=== PATIENT | female | born 1995 | race American Indian/Alaskan Native ===

== ENCOUNTER 2019-04-27 00:53 | Emergency (ER) | payer SELFPAY ==
[2019-04-27] MEDS ORDERED: ACTIDOSE-AQUA PO ONE (01:24)
[2019-04-27] MEDS ORDERED: NACL 0.9% 1000 ML 1,000 ML IV ONE (01:25)
--- NOTE | 2019-04-27 01:30 | Emergency Department Report ---
ED Psych HPI - General Chief Complaint: Psych Stated Complaint: OVERDOSE Time Seen by Provider: 04/27/19 01:22 Source: patient, police Mode of arrival: Ambulatory - History of Present Illness Initial Comments: 23-year-old female, hx of HIV, bipolar, schizophrenia, presents ED following an attempted overdose. Patient was at home and got into an argument with friends. Patient wanted everyone to leave, but they wouldn't, so she locked herself in a room and reports taking 15 pills approx 1 hour ago. Patient states pills were her psychiatric medicine, however does not know the name. States it started with an "L". Patient reports other life stressors going on that made her want to end her life tonight. Patient states, "I just wanted to know what it would feel like if I wasn't here anymore." Complaint: suicidal ideation -: hour(s) (1) Associated Psychiatric Symptoms: suicidal ideation History of same: Yes Improves With: none Worsens With: none Context: significant life stressor Associated Symptoms: denies other symptoms Treatments Prior to Arrival: none If Self Harm: intentional overdose - Related Data Allergies Allergy/AdvReac Type Severity Reaction Status Date / Time No Known Allergies Allergy Unverified 04/27/19 01:46 ED Review of Systems ROS: Stated complaint: OVERDOSE Other details as noted in HPI Comment: All other systems reviewed and negative Gastrointestinal: denies: nausea, vomiting Psychiatric: depression, suicidal thoughts. denies: auditory hallucinations, visual hallucinations, homicidal thoughts ED Past Medical Hx - Past Medical History Previous Medical History?: Yes Hx Psychiatric Treatment: Yes (Bipolar/schizophrenia, ADHD, OCD, ADD, MAJOR DEPRESSIVE DISORDER) - Surgical History Past Surgical History?: No - Social History Smoking Status: Current Some Day Smoker Substance Use Type: Alcohol, Marijuana ED Physical Exam - General Limitations: No Limitations General appearance: alert, in no apparent distress - Head Head exam: Present: atraumatic, normocephalic - Eye Eye exam: Present: normal appearance, PERRL, EOMI - ENT ENT exam: Present: mucous membranes moist - Neck Neck exam: Present: normal inspection - Respiratory Respiratory exam: Present: normal lung sounds bilaterally. Absent: respiratory distress - Cardiovascular Cardiovascular Exam: Present: regular rate, normal rhythm - GI/Abdominal GI/Abdominal exam: Absent: distended - Extremities Exam Extremities exam: Present: normal inspection - Neurological Exam Neurological exam: Present: alert, oriented X3, CN II-XII intact. Absent: motor sensory deficit - Psychiatric Psychiatric exam: Present: normal affect, normal mood - Skin Skin exam: Present: warm, dry, intact, normal color ED Course Vital Signs 04/27/19 04/27/19 04/27/19 01:12 02:03 05:07 Temperature 98 F 98 F Pulse Rate 85 89 71 Respiratory 16 16 16 Rate Blood Pressure 142/101 130/81 111/85 [Left] O2 Sat by Pulse 100 100 100 Oximetry 04/27/19 04/27/19 04/27/19 06:55 07:57 08:24 Temperature 97.8 F 98.6 F Pulse Rate 73 82 87 Respiratory 16 16 16 Rate Blood Pressure 110/83 133/91 150/96 [Left] O2 Sat by Pulse 99 100 100 Oximetry 04/27/19 04/27/19 04/28/19 13:52 19:00 04:00 Temperature 98.4 F 98.1 F 98.1 F Pulse Rate 86 88 81 Respiratory 18 16 16 Rate Blood Pressure 135/84 123/87 124/74 [Left] O2 Sat by Pulse 100 100 100 Oximetry 04/28/19 04/28/19 04/28/19 07:30 08:00 16:23 Temperature 98.8 F 98.2 F Pulse Rate 81 95 H Respiratory 18 18 Rate Blood Pressure 122/83 127/91 [Left] O2 Sat by Pulse 99 100 Oximetry ED Medical Decision Making - Lab Data Result diagrams: 04/27/19 01:29 04/27/19 01:29 - EKG Data -: EKG Interpreted by Nd EKG shows normal: sinus rhythm, axis, intervals, QRS complexes, ST-T waves Rate: normal - EKG Data Interpretation: no acute changes - Medical Decision Making 23-year-old female presents to ED following possible overdose. Patient reported that she took approximately 15 of her prescribed psychiatric medication, although patient does not know what medication it was. Patient placed on 1013. Vitals have been normal thus far. Labs are normal as well. EKG is also normal. Patient has been awake and alert, not lethargic. She has also been uncooperative with her workup, refusing various interventions, and demanding to leave and go home. I spoke with poison control who recommended 23 hour monitoring due to the fact that patient has history of bipolar and schizophrenia, and any psychiatric medication that she may have been on, could be dangerous if taken in such a large amount. So far, no seizure activity, no abnormal vitals, no abnormal mentation. Will continue to monitor. - Differential Diagnosis SI, possible overdose Critical care attestation.: If time is entered above; I have spent that time in minutes in the direct care of this critically ill patient, excluding procedure time. ED Disposition Clinical Impression: Suicidal ideation Disposition: [id number]/TX-[facility] PSY HOSP/PSY UNIT Is pt being admited?: No Condition: Stable Referrals: YOLANDA TORO MD [Referring] - 3-5 Days
[2019-04-27 01:42] LABS: Basophils % (Auto) 0.4 % (0.0-1.8); Eosinophils # (Auto) 0.1 K/mm3 (0.0-0.4); Eosinophils % (Auto) 0.8 % (0.0-4.3); Hematocrit 39.8 % (30.3-42.9); Hemoglobin 13.2 gm/dl (10.1-14.3); Lymphocytes # (Auto) 2.8 K/mm3 (1.2-5.4); Lymphocytes % (Auto) 24.9 % (13.4-35.0); Mean Corpuscular HGB Conc 33 % (30-34); Mean Corpuscular Volume 91 fl (79-97); Monocytes # (Auto) 0.9 K/mm3 (0.0-0.8); Monocytes % (Auto) 8.3 % (0.0-7.3); Platelet Count 230 K/mm3 (140-440); Red Blood Count 4.39 M/mm3 (3.65-5.03); Red Cell Distribution Width 13.9 % (13.2-15.2)
[2019-04-27 02:04] LABS: Alanine Aminotransferase 11 units/L (7-56); Albumin 3.8 g/dL (3.9-5); BUN/Creatinine Ratio 13; Blood Urea Nitrogen 10 mg/dL (7-17); Calcium 8.7 mg/dL (8.4-10.2); Hemolysis Index 4
[2019-04-27] MEDS ORDERED: K-DUR PO ONE (02:21)
[2019-04-27] MEDS ORDERED: GEODON IM ONE (07:26)
--- NOTE | 2019-04-27 07:28 | Emergency Department Report ---
Blank Doc - Documentation Documentation: pt is uncooperative. Threatening to leave. Stating that she does not want to go to a psychiatric hospital and she is fine for discharge even though she tried to kill herself feel overdose prior to arrival. Security staff at bedside to subdue patient. Geodon 20 mg IM ordered to prevent patient injury to self or staff.
--- NOTE | 2019-04-27 09:35 | Consultation ---
History of Present Illness - Reason for Consult Consult date: 04/27/19 Reason for consult: Mental Health Evaluation Requesting physician: CHRISTIAN LOPEZ - Chief Complaint Chief complaint: "I just want to go home" - History of Present Psychiatric Illness 23 y.o. AA female who presented to the for overdosing on 15 unidentified pills. Today the patient was emotional during the assessment. She did acknowledge taking several pills so she can feel "numb" because she was experiencing "stressors." She became emotional after she was explained the 1013 process. She was adamant that she can be discharged. Several attempts was made to engage the patient, but was unsuccessful. Medications and Allergies Allergies Allergy/AdvReac Type Severity Reaction Status Date / Time No Known Allergies Allergy Unverified 04/27/19 01:46 Past psychiatric history - Past Medical History Past Medical History: No medical history Past Surgical History: No surgical history - past Psychiatric treatment and history psychiatric treatment history: Hx of mood do per the patient. Unable to obtain a fam psy hx. - Social History Social history: Lives alone Mental Status Exam - Vital signs Last Vital Signs Temp 98.6 F 04/27/19 08:24 Pulse 87 04/27/19 08:24 Resp 16 04/27/19 08:24 BP 150/96 04/27/19 08:24 Pulse Ox 100 04/27/19 08:24 - Exam Narrative exam: MSE: Appearance: in hospital attire Behavior: regular eye contact Speech: regular rate and tone Mood: emotional Affect: congruent to mood Thought Process: unable to assess Thought Content: unable to assess Motor Activity: lying in bed Cognition: A/O x 3 Insight: unable to assess Judgment: poor Results Result Diagrams: 04/27/19 01:29 04/27/19 01:29 Abnormal lab results 04/27/19 04/27/19 04/27/19 Range/Units 01:29 01:29 01:29 WBC 11.2 H (4.5-11.0) K/mm3 Bullitt % (Auto) 8.3 H (0.0-7.3) % Bullitt # 0.9 H (0.0-0.8) K/mm3 Potassium 3.0 L (3.6-5.0) mmol/L Chloride 107.2 H (98-107) mmol/L Glucose 103 H (65-100) mg/dL Albumin 3.8 L (3.9-5) g/dL Salicylates < 0.3 L (2.8-20.0) mg/dL Acetaminophen (10.0-30.0) ug/mL Valproic Acid (50-100) ug/mL 04/27/19 04/27/19 Range/Units 01:29 08:49 WBC (4.5-11.0) K/mm3 Bullitt % (Auto) (0.0-7.3) % Bullitt # (0.0-0.8) K/mm3 Potassium (3.6-5.0) mmol/L Chloride (98-107) mmol/L Glucose (65-100) mg/dL Albumin (3.9-5) g/dL Salicylates (2.8-20.0) mg/dL Acetaminophen < 5.0 L (10.0-30.0) ug/mL Valproic Acid < 2.8 L (50-100) ug/mL All other labs normal. Assessment and Plan Assessment and plan: Impression: Intentional overdose. Today the patient was emotional during the assessment. UDS/UA pending. QTc 456. DDx: Mood DO Recommendations/Plan: Continue 1013 and reassess the patient in 24 [address] staff with Dr Brad Gonsalves.
[2019-04-27 09:36] LABS: HCG Qualitative,Urine Negative (Negative)
[2019-04-27 09:42] LABS: Amphetamine Screen,Urine PRESUMPTIVE NEGATIVE; Benzodiazepines Screen,Urine PRESUMPTIVE NEGATIVE; Cocaine Screen,Urine PRESUMPTIVE NEGATIVE; Methadone Screen,Urine PRESUMPTIVE NEGATIVE; Opiate Screen,Urine PRESUMPTIVE NEGATIVE
[2019-04-27 09:46] LABS: Bilirubin,Urine NEG (Negative); Blood,Urine SM (Negative); Color,Urine Yellow (Yellow); Protein,Urine <15 mg/dL mg/dL (Negative)
[2019-04-27 09:56] LABS: Cannabinoid Screen,Urine PRESUMPTIVE POSITIVE
--- NOTE | 2019-04-28 08:44 | Progress Note ---
Subjective - Reason for Consult Consult date: 04/28/19 Reason for consult: Psychiatry Follow-up - Chief Complaint Chief complaint: "I didn't overdose" 23 y.o. AA female who presented to the for overdosing on 15 unidentified pills. Today the patient was calm and cooperative during the assessment. She is adamant that she didn't take any pills prior to coming to the ER. She stated that she is in a situation with a rangel that have caused a lot of stress in her life. She acknowledged locking herself in her bathroom at her home. She stated that she poured the pills down the toilet. She stated that she was upset and told the police that she ingested the pills. She stated that she deal with the of her mother and her HIV status. She stated that she contracted HIV as an "infant" from her mother. She acknowledged that she attempted suicide (17 yrs old) when asked about her mental health. She rate her depression 4/10, with 10 being the worse. She denies SI/HI's and AVH's. Mental Status Exam - Vital signs Last Vital Signs Temp 98.1 F 04/28/19 04:00 Pulse 81 04/28/19 07:30 Resp 18 04/28/19 07:30 BP 122/83 04/28/19 07:30 Pulse Ox 99 04/28/19 07:30 - Exam Narrative exam: MSE: Appearance: calm, cooperative Behavior: regular eye contact Speech: regular rate and tone Mood: "okay" Affect: congruent to mood Thought Process: circumstantial Thought Content: denies Si/HI's and AVH's Motor Activity: lying in bed Cognition: A/O x 3 Insight: variable Judgment: variable Assessment and Plan Impression: MDD. Cannabis Use DO. Intentional overdose? Today the patient was calm and cooperative during the assessment. QTc 456. DDx: r/O bipolar DO, Substance Induced Mood DO Recommendations/Plan: Continue 1013 and gather collateral information. Start Remeron 15 mg PO HS for depression. Discussed possible suicidality/medication induced daylin with the patient reference Remeron, she verbalized understanding Dispo: The patient was referred to inpatient psy services. Will staff with Dr Brad Gonsalves.
[2019-04-28] MEDS ORDERED: K-DUR PO ONE (14:28)
[2019-04-28] MEDS ORDERED: DUONEB *Not for PRN Use IH ONE (21:28)
[2019-04-28] MEDS ORDERED: BROVANA NEBU IH ONE (21:28)
[2019-04-28] MEDS ORDERED: PULMICORT IH ONE (21:29)
[2019-04-28] MEDS: REMERON PO SCH (22:17)
--- NOTE | 2019-04-29 14:09 | Progress Note ---
Subjective - Reason for Consult Consult date: 04/29/19 Reason for consult: Psychiatric Follow-up Evaluation - Chief Complaint Chief complaint: "I feel good." Patient is a 23 y.o. AA female who presented to the for overdosing on 15 unidentified pills. Today the patient is calm and cooperative during the assessment. She reports " I lied about taking pills so that I wouldn't have to go to nursing home." Today the patient is cooperative but anxious during the as sessment. She denies depressed mood and anxiety. She reports appropriate sleep and appetite. She denies SI/HI's, A/VH's, and delusions. Reports medication compliance. No side effects noted/reported. Mental Status Exam - Vital signs Last Vital Signs Temp 98.8 F 04/29/19 07:00 Pulse 97 H 04/29/19 07:00 Resp 18 04/29/19 07:00 BP 124/79 04/29/19 07:00 Pulse Ox 100 04/29/19 07:00 - Exam Narrative exam: Mental Status Exam Appearance: calm, cooperative Behavior: regular eye contact Speech: regular rate and tone Mood: "I feel good" Affect: congruent to mood Thought Process: circumstantial Thought Content: denies SI/HI's, AVH's,and delusions. Motor Activity: lying in bed Cognition: A/O x 3 Insight: variable Judgment: variable Assessment and Plan Impression: MDD. Cannabis Use DO. Intentional overdose? Today the patient is cooperative but anxious during the assessment. QTc 456. She denies SI/HI's, A/VH's, and delusions. DDx: r/O bipolar DO, Substance Induced Mood DO Recommendations/Plan: 1. Continue 1013. Will reevaluate 1013 in 24 hours. 2. Will attempt to gather collateral information. 3. Continue Remeron 15 mg PO HS for depression. Discussed possible suicidality/medication induced daylin with the patient reference Remeron, she verbalized understanding. Disposition: The patient was referred to inpatient psychiatric services. Will staff with Dr. Brad Gonsalves.
[2019-04-29] MEDS ORDERED: NON-FORMULARY (Elviteg/Cob/Emtri/Tenof Alafen [Genvoya Tablet] 1 EACH) PO SCH (14:30)
[2019-04-29] MEDS: REMERON PO SCH (22:08)
[2019-04-30 02:29] VITALS: BP 115/79
== END 2019-04-30 07:00 ==
LOC: EEVIPCON 00:53 → ED 00:53
DX: T50.902A Poisoning by unspecified drugs, medicaments and biological substances, intentional self-harm, initial encounter (principal); F31.9 Bipolar disorder, unspecified; F20.9 Schizophrenia, unspecified; F90.9 Attention-deficit hyperactivity disorder, unspecified type; F17.200 Nicotine dependence, unspecified, uncomplicated; F12.10 Cannabis abuse, uncomplicated; Z21 Asymptomatic human immunodeficiency virus [HIV] infection status; Y92.89 Other specified places as the place of occurrence of the external cause
CPT/HCPCS: 36415; 80053; 80164; 80178; 80307; 81001; 81025; 83735; 84132; 85025; 87086; 93005; 93010; 96372; 99285; J3486; J7030; 80320; G0480